=== PATIENT | male | born 1945 | race Caucasian/White ===

== ENCOUNTER 2019-10-30 19:00 | Emergency (ER) | payer MEDICARE, OTHER ==
[~2019-10-30] VITALS: Ht 170.2 cm; Wt 63.4 kg
[2019-10-30 19:37] LABS: BASOPHILS % (AUTO) 0.2 % (0-1); EOSINOPHILS % (AUTO) 0.3 % (0-6); HEMATOCRIT 39.7 % (42.0-52.0); HEMOGLOBIN 13.4 g/dl (14.0-17.9); LYMPHOCYTES # (AUTO) 0.3 X10'3 (1.1-4.8); LYMPHOCYTES % (AUTO) 1.9 % (21-51); MEAN CORPUSCULAR HGB CONC 33.8 g/dL (33.0-36.5); MEAN CORPUSCULAR VOLUME 91.8 FL (78-98); MEAN PLATELET VOLUME 7.2 FL (7.4-10.4); MONOCYTES # (AUTO) 0.8 X10'3 (0-0.9); MONOCYTES % (AUTO) 5.2 % (2-12); NEUTROPHILS % (AUTO) 92.4 % (42-75); PLATELET COUNT 204 X10'3 (140-440); RED BLOOD COUNT 4.33 X10'6 (4.70-6.10); WHITE BLOOD COUNT 16.2 X10'3 (4.5-11.0)
[2019-10-30 19:51] LABS: ANION GAP 7 (8-16); BLOOD UREA NITROGEN 25 MG/DL (7-18); BUN/CREATININE RATIO 13.4 (5.4-32.0); CALCIUM 9.1 MG/DL (8.5-10.1); CHLORIDE 101 MMOL/L (99-107); CREATININE 1.87 MG/DL (0.60-1.10); GLUCOSE 112 MG/DL (70-104); POTASSIUM 4.2 MMOL/L (3.5-5.1); SODIUM 136 MMOL/L (135-145); TOTAL CARBON DIOXIDE 27.7 MMOL/L (24-32); eGFR 35 ML/MIN
[2019-10-30 19:52] LABS: ALANINE AMINOTRANSFERASE 30 U/L (12-78); ALBUMIN 3.7 G/DL (3.4-5.0); ALBUMIN/GLOBULIN RATIO 1.1 (1.1-1.5); ALKALINE PHOSPHATASE 63 IU/L (46-116); ASPARTATE AMINO TRANSFERASE 30 U/L (10-37); LIPASE 145 U/L (73-393); TOTAL PROTEIN 7.2 G/DL (6.4-8.2)
[2019-10-30 21:14] LABS: CLARITY,URINE CLEAR (Clear); COLOR,URINE YELLOW (Yellow); GLUCOSE, URINE NEGATIVE (Neg); KETONES,URINE NEGATIVE (Neg); LEUKOCYTE ESTERASE ,URINE TRACE (Neg); NITRITES, URINE POSITIVE (Neg); OCCULT BLOOD,URINE NEGATIVE (Neg); PH,URINE 5.5 (4.8-8.0); PROTEIN,URINE NEGATIVE (Neg); UA COLLECTION TYPE NON-SPECIFIED; UROBILINOGEN,URINE 0.2 E.U/dL (0.2-1.0)
--- NOTE | 2019-10-30 21:14 | NUR ---
PT DAUGHTER KALPANA [phone] IS OPUTSIDE AWAITING PT DISCHARGE FOR TRANSPORTATION
[2019-10-30] MEDS ORDERED: CefTRIAXone 2gm/D5W 50ml 50 ML IV ONE (21:20)
[2019-10-30 21:22] LABS: SQUAMOUS EPITHELIAL CELL,UR NONE SEEN /LPF (FEW)
[2019-10-30 21:24] LABS: BACTERIA,URINE 1+ /HPF (Neg); RBC,URINE 0-2 /HPF (0-2); WBC,URINE 0-4 /HPF (0-4)
[2019-10-30 21:24] LABS: MAGNESIUM 1.8 MG/DL (1.5-2.4)
[2019-10-30 21:25] LABS: WBC CLUMPS,URINE FEW /HPF (NEGATIVE)
[2019-10-30 21:28] LABS: PARTIAL THROMBOPLASTIN TIME 29 SECONDS (22-32)
[2019-10-30] MEDS ORDERED: CIPR250T4 PO (22:00)
[2019-10-30] MEDS ORDERED: ciprofloxacin 250mg tablet PO ONE (22:00)
--- NOTE | 2019-10-30 22:32 | NUR ---
PHONE PT DAUGHTER UPDATED POC SHE WILL BE AWAITING HIS DISCHARGE
[2019-10-30 23:10] VITALS: BP 93/57
== END 2019-10-30 23:12 | disposition home or self-care (01) ==
LOC: ER 19:01
DX: N39.0 Urinary tract infection, site not specified (principal); R53.1 Weakness; R42 Dizziness and giddiness; R68.83 Chills (without fever); Z79.899 Other long term (current) drug therapy
CPT/HCPCS: 36415; 80053; 81001; 83690; 83735; 84484; 85025; 85610; 85730; 87077; 87088; 87186; 93005; 96365; 99284; J0696

== ENCOUNTER 2020-01-02 16:35 | Emergency (ER) | payer MEDICARE, OTHER ==
[~2020-01-02] VITALS: Ht 170.2 cm; Wt 70.5 kg
[2020-01-02 16:45] VITALS: BP 103/62
[2020-01-02 17:09] LABS: CLARITY,URINE CLOUDY (Clear); COLOR,URINE AMBER (Yellow); GLUCOSE, URINE NEGATIVE (Neg); KETONES,URINE TRACE mg/dl (Neg); LEUKOCYTE ESTERASE ,URINE TRACE (Neg); NITRITES, URINE NEGATIVE (Neg); OCCULT BLOOD,URINE NEGATIVE (Neg); PROTEIN,URINE 30 mg/dl (Neg)
[2020-01-02 17:11] LABS: UA COLLECTION TYPE URINAL
[2020-01-02 17:14] LABS: HYALINE CASTS >30 /LPF (NEGATIVE); SQUAMOUS EPITHELIAL CELL,UR MODERATE /LPF (FEW)
[2020-01-02 17:18] LABS: BACTERIA,URINE 2+ /HPF (Neg); RBC,URINE 0-2 /HPF (0-2)
[2020-01-02 17:19] LABS: WBC CLUMPS,URINE FEW /HPF (NEGATIVE)
[2020-01-02 17:20] LABS: TRANSITIONAL EPI CELLS,URINE FEW /HPF
[2020-01-02] MEDS ORDERED: CEFD300C3 PO (17:29)
== END 2020-01-02 17:55 | disposition home or self-care (01) ==
LOC: ER 16:36
DX: N39.0 Urinary tract infection, site not specified (principal); I10 Essential (primary) hypertension; Z79.2 Long term (current) use of antibiotics
CPT/HCPCS: 81001; 87088; 99283

== ENCOUNTER 2024-01-30 12:50 | Emergency (ER) | payer MEDICARE, OTHER ==
[~2024-01-30] VITALS: Ht 172.7 cm; Wt 65.9 kg
[2024-01-30 13:45] LABS: BASOPHILS # (AUTO) 0.1 X10'3 (0-0.2); EOSINOPHILS # (AUTO) 0.3 X10'3 (0-0.9); EOSINOPHILS % (AUTO) 3.7 % (0-6); HEMATOCRIT 42.9 % (42.0-52.0); HEMOGLOBIN 14.3 g/dl (14.0-17.9); LYMPHOCYTES # (AUTO) 1.1 X10'3 (1.1-4.8); LYMPHOCYTES % (AUTO) 15.8 % (21-51); MEAN CORPUSCULAR HGB CONC 33.3 g/dL (33.0-36.5); MEAN PLATELET VOLUME 7.3 FL (7.4-10.4); MONOCYTES # (AUTO) 0.8 X10'3 (0-0.9); MONOCYTES % (AUTO) 11.6 % (2-12); NEUTROPHILS # (AUTO) 4.9 X10'3 (1.8-7.7); NEUTROPHILS % (AUTO) 67.9 % (42-75); PLATELET COUNT 258 X10'3 (140-440); RED BLOOD COUNT 4.62 X10'6 (4.70-6.10); RED CELL DISTRIBUTION WIDTH 14.2 % (11.5-14.5); WHITE BLOOD COUNT 7.2 X10'3 (4.5-11.0)
[2024-01-30 14:00] LABS: ALANINE AMINOTRANSFERASE 30 U/L (12-78); ALBUMIN 4.1 G/DL (3.4-5.0); ALBUMIN/GLOBULIN RATIO 1.2 (1.1-1.5); ALKALINE PHOSPHATASE 68 IU/L (46-116); ANION GAP 6 (8-16); ASPARTATE AMINO TRANSFERASE 27 U/L (10-37); BILIRUBIN,TOTAL 0.6 MG/DL (0.1-1.0); BLOOD UREA NITROGEN 32 MG/DL (7-18); BUN/CREATININE RATIO 15.9 (10.0-20.0); CALCIUM 9.5 MG/DL (8.5-10.1); CHLORIDE 106 MMOL/L (99-107); CREATININE 2.01 MG/DL (0.60-1.10); GLUCOSE 115 MG/DL (70-104); POTASSIUM 4.4 MMOL/L (3.5-5.1); SODIUM 142 MMOL/L (135-145); TOTAL PROTEIN 7.6 G/DL (6.4-8.2); eCRCL 27 ML/MIN; eGFR 32 ML/MIN
[2024-01-30 14:25] VITALS: BP 153/79; PULSE 53; RESP 16; TEMP 98.3; O2SAT 98
== END 2024-01-30 14:39 | disposition home or self-care (01) ==
LOC: ER 12:52
DX: K92.2 Gastrointestinal hemorrhage, unspecified (principal); I10 Essential (primary) hypertension
CPT/HCPCS: 36415; 80053; 85025; 99283

== ENCOUNTER 2024-02-29 06:31 | Inpatient (IN) | payer MEDICARE, OTHER ==
[~2024-02-29] VITALS: Ht 172.7 cm; Wt 53.0 kg
[2024-02-29] VITALS (11 sets, daily range): BP systolic 136–146; BP diastolic 79–84; PULSE 54–88; RESP 18–28; TEMP 97.6; O2SAT 90–97
[2024-02-29 07:27] LABS: BASOPHILS % (AUTO) 0.2 % (0-1); EOSINOPHILS % (AUTO) 0 % (0-6); HEMATOCRIT 48.3 % (42.0-52.0); LYMPHOCYTES # (AUTO) 0.3 X10'3 (1.1-4.8); LYMPHOCYTES % (AUTO) 5.2 % (21-51); MEAN CORPUSCULAR HEMOGLOBIN 30.7 PG (27.0-31.0); MEAN CORPUSCULAR VOLUME 92.8 FL (78-98); MEAN PLATELET VOLUME 7.5 FL (7.4-10.4); MONOCYTES # (AUTO) 0.6 X10'3 (0-0.9); MONOCYTES % (AUTO) 10.8 % (2-12); NEUTROPHILS # (AUTO) 4.3 X10'3 (1.8-7.7); NEUTROPHILS % (AUTO) 83.8 % (42-75); PLATELET COUNT 215 X10'3 (140-440); RED BLOOD COUNT 5.21 X10'6 (4.70-6.10); RED CELL DISTRIBUTION WIDTH 14.7 % (11.5-14.5); WHITE BLOOD COUNT 5.2 X10'3 (4.5-11.0)
[2024-02-29 07:34] LABS: BILIRUBIN,URINE NEGATIVE (Neg); CLARITY,URINE CLEAR (Clear); COLOR,URINE YELLOW (Yellow); GLUCOSE, URINE NEGATIVE (Neg); KETONES,URINE NEGATIVE (Neg); LEUKOCYTE ESTERASE ,URINE NEGATIVE (Neg); NITRITES, URINE NEGATIVE (Neg); OCCULT BLOOD,URINE SMALL (Neg); PROTEIN,URINE 100 mg/dl (Neg); UROBILINOGEN,URINE 0.2 E.U/dL (0.2-1.0)
[2024-02-29 07:37] LABS: UA COLLECTION TYPE CLN CATCH MIDSTREAM
[2024-02-29 07:39] LABS: WBC,URINE 0-4 /HPF (0-4)
[2024-02-29 07:40] LABS: BACTERIA,URINE FEW /HPF (Neg); MUCUS STRANDS FEW /LPF (Neg); RBC,URINE 0-2 /HPF (0-2); SQUAMOUS EPITHELIAL CELL,UR FEW /LPF (FEW)
[2024-02-29 07:58] LABS: ANION GAP 13 (8-16); BLOOD UREA NITROGEN 48 MG/DL (7-18); BUN/CREATININE RATIO 22.6 (10.0-20.0); CALCIUM 9.8 MG/DL (8.5-10.1); CHLORIDE 104 MMOL/L (99-107); CREATININE 2.12 MG/DL (0.60-1.10); GLUCOSE 122 MG/DL (70-104); MAGNESIUM 3.2 MG/DL (1.5-2.4); POTASSIUM 3.5 MMOL/L (3.5-5.1); PRO BRAIN NATRIURETIC PEPTIDE 1055 PG/ML (0-450); SODIUM 142 MMOL/L (135-145); TOTAL CARBON DIOXIDE 24.7 MMOL/L (24-32); eCRCL 21 ML/MIN; eGFR 30 ML/MIN
[2024-02-29] MEDS: albuterol 2.5 MG/3 ML nebule NEB ONE (11:24)
[2024-02-29] MEDS: CefTRIAXone 2gm/D5W 50ml BAG 50 ML IV ONE (11:25)
[2024-02-29] MEDS: methylPREDNISolone sod succ 125mg/2ml vial IV ONE (11:25)
[2024-02-29] MEDS: azithromycin 250mg tablet PO ONE (12:24)
[2024-02-29] MEDS: normal saline 1000ml 1,000 ML IV ONE (12:29)
[2024-02-29] MEDS: normal saline 500ml IV soln 500 ML IV SCH (12:47)
[2024-02-29] MEDS ORDERED: magnesium sulf-water 4G/100mL 100 ML IV PRN (12:55)
[2024-02-29] MEDS ORDERED: albuterol 2.5 MG/3 ML nebule NEB PRN (12:55)
[2024-02-29] MEDS ORDERED: acetaminophen 325mg tablet PO PRN (12:55)
[2024-02-29] MEDS ORDERED: ondansetron/PF 4mg/2ml inj IV PRN (12:55)
[2024-02-29] MEDS ORDERED: magnesium Cl slow-release 64mg tablet PO PRN (12:55)
[2024-02-29] MEDS ORDERED: potassium Cl 20 mEq SR tablet PO PRN (12:55)
[2024-02-29] MEDS ORDERED: mag hydrox/Alum hydrox/simeth 30ml oral suspension PO PRN (12:55)
[2024-02-29] MEDS ORDERED: magnesium sulf-water 2g/50mL 50 ML IV PRN (12:55)
[2024-02-29] MEDS: normal saline 1000ml 1,000 ML IV SCH (12:55)
[2024-02-29] MEDS ORDERED: potassium Cl 40MEQ/1/2NS 520ml 520 ML IV PRN (12:55)
[2024-02-29] MEDS ORDERED: magnesium hydroxide 30ml (MOM) UD suspension PO PRN (12:55)
[2024-02-29] MEDS: methylPREDNISolone sod succ/PF 40mg inj. IV SCH (14:05)
[2024-02-29] MEDS: oseltamivir phos 75mg capsule PO SCH (14:05)
[2024-02-29 14:13] LABS: BILIRUBIN,URINE NEGATIVE (Neg); CLARITY,URINE CLEAR (Clear); COLOR,URINE YELLOW (Yellow); GLUCOSE, URINE NEGATIVE (Neg); KETONES,URINE NEGATIVE (Neg); LEUKOCYTE ESTERASE ,URINE NEGATIVE (Neg); NITRITES, URINE NEGATIVE (Neg); OCCULT BLOOD,URINE SMALL (Neg); PROTEIN,URINE 100 mg/dl (Neg); UROBILINOGEN,URINE 0.2 E.U/dL (0.2-1.0)
[2024-02-29 14:17] LABS: UA COLLECTION TYPE VOIDED
[2024-02-29 14:20] LABS: WBC,URINE 0-4 /HPF (0-4)
[2024-02-29 14:21] LABS: BACTERIA,URINE 1+ /HPF (Neg); MUCUS STRANDS FEW /LPF (Neg); SQUAMOUS EPITHELIAL CELL,UR FEW /LPF (FEW)
[2024-02-29] MEDS: azithromycin/NS 500mg/250ml 250 ML IV SCH (15:08)
[2024-02-29 15:21] LABS: APTT 33 SECONDS (22-32); INR 1.1 INR; PROTHROMBIN TIME 11.5 SECONDS (9.0-12.0)
[2024-02-29 15:37] LABS: HEMOGLOBIN A1C 4.9 % (4.5-6.2)
[2024-02-29 17:07] LABS: MAGNESIUM 2.5 MG/DL (1.5-2.4); PHOSPHORUS 3.2 MG/DL (2.3-4.5)
[2024-02-29] MEDS: K and/or MAG REPLACEMENT MC SCH (20:00)
[2024-02-29] MEDS: docusate sod 100mg capsule PO SCH (20:55)
[2024-02-29] MEDS: heparin, porcine 5000 units/ml vial SQ SCH (20:55)
[2024-03-01] VITALS (12 sets, daily range): BP systolic 148–167; BP diastolic 75–87; PULSE 55–78; RESP 18–25; TEMP 96.8–98.2; O2SAT 93–99
[2024-03-01 06:54] LABS: BASOPHILS % (AUTO) 0.1 % (0-1); EOSINOPHILS % (AUTO) 0 % (0-6); HEMATOCRIT 42.4 % (42.0-52.0); HEMOGLOBIN 14.2 g/dl (14.0-17.9); LYMPHOCYTES # (AUTO) 0.4 X10'3 (1.1-4.8); LYMPHOCYTES % (AUTO) 5.4 % (21-51); MEAN CORPUSCULAR HEMOGLOBIN 30.9 PG (27.0-31.0); MEAN CORPUSCULAR HGB CONC 33.5 g/dL (33.0-36.5); MEAN CORPUSCULAR VOLUME 92.3 FL (78-98); MEAN PLATELET VOLUME 7.5 FL (7.4-10.4); MONOCYTES # (AUTO) 0.8 X10'3 (0-0.9); MONOCYTES % (AUTO) 11.3 % (2-12); NEUTROPHILS # (AUTO) 6.2 X10'3 (1.8-7.7); NEUTROPHILS % (AUTO) 83.2 % (42-75); PLATELET COUNT 195 X10'3 (140-440); RED CELL DISTRIBUTION WIDTH 14.6 % (11.5-14.5); WHITE BLOOD COUNT 7.4 X10'3 (4.5-11.0)
[2024-03-01 07:38] LABS: ALANINE AMINOTRANSFERASE 68 U/L (12-78); ALBUMIN 2.2 G/DL (3.4-5.0); ALBUMIN/GLOBULIN RATIO 0.6 (1.1-1.5); ALKALINE PHOSPHATASE 56 IU/L (46-116); ANION GAP 12 (8-16); ASPARTATE AMINO TRANSFERASE 102 U/L (10-37); BILIRUBIN,TOTAL 0.7 MG/DL (0.1-1.0); BLOOD UREA NITROGEN 44 MG/DL (7-18); BUN/CREATININE RATIO 26.7 (10.0-20.0); CALCIUM 8.8 MG/DL (8.5-10.1); CHLORIDE 109 MMOL/L (99-107); CHOL/HDL RATIO 2.1 (0.00-4.99); CHOLESTEROL 84 MG/DL (0-200); CREATININE 1.65 MG/DL (0.60-1.10); GLUCOSE 174 MG/DL (70-104); HDL CHOLESTEROL 40 MG/DL (35-60); LDL CHOLESTEROL 38 MG/DL (50-100); POTASSIUM 3.3 MMOL/L (3.5-5.1); SODIUM 143 MMOL/L (135-145); TOTAL CARBON DIOXIDE 22.1 MMOL/L (24-32); TOTAL PROTEIN 6.1 G/DL (6.4-8.2); TRIGLYCERIDES 81 MG/DL (20-135); eCRCL 27 ML/MIN; eGFR 40 ML/MIN
[2024-03-01] MEDS: CefTRIAXone/D5W-Rocephin 1gm 50 ML IV SCH (08:43)
[2024-03-01] MEDS: lactobacillus rhamnosus 10,000 MMU CELLS/CAPSULE PO SCH (08:44)
[2024-03-01] MEDS: pantoprazole 40 MG vial IV SCH (08:44)
[2024-03-01] MEDS ORDERED: ipratropium/albuterol 3ml nebule NEB PRN (12:50)
[2024-03-01] MEDS: potassium Cl 20 mEq SR tablet PO PRN (13:36)
[2024-03-01] MEDS: ipratropium/albuterol 3ml nebule NEB SCH (15:35)
[2024-03-02] VITALS (19 sets, daily range): BP systolic 123–165; BP diastolic 80–92; PULSE 54–96; RESP 12–26; TEMP 97.4–97.9; O2SAT 89–97
[2024-03-02 06:04] LABS: BASOPHILS % (AUTO) 0 % (0-1); EOSINOPHILS % (AUTO) 0 % (0-6); HEMATOCRIT 44.3 % (42.0-52.0); LYMPHOCYTES # (AUTO) 0.3 X10'3 (1.1-4.8); LYMPHOCYTES % (AUTO) 2.5 % (21-51); MEAN CORPUSCULAR HGB CONC 33.8 g/dL (33.0-36.5); MEAN CORPUSCULAR VOLUME 91.8 FL (78-98); MEAN PLATELET VOLUME 7.4 FL (7.4-10.4); MONOCYTES # (AUTO) 0.9 X10'3 (0-0.9); MONOCYTES % (AUTO) 8.5 % (2-12); NEUTROPHILS # (AUTO) 9.5 X10'3 (1.8-7.7); PLATELET COUNT 216 X10'3 (140-440); RED BLOOD COUNT 4.82 X10'6 (4.70-6.10); RED CELL DISTRIBUTION WIDTH 14.4 % (11.5-14.5); WHITE BLOOD COUNT 10.7 X10'3 (4.5-11.0)
[2024-03-02 06:14] LABS: ALANINE AMINOTRANSFERASE 174 U/L (12-78); ALBUMIN 2.2 G/DL (3.4-5.0); ALBUMIN/GLOBULIN RATIO 0.5 (1.1-1.5); ALKALINE PHOSPHATASE 72 IU/L (46-116); ANION GAP 11 (8-16); ASPARTATE AMINO TRANSFERASE 220 U/L (10-37); BILIRUBIN,TOTAL 0.6 MG/DL (0.1-1.0); BLOOD UREA NITROGEN 47 MG/DL (7-18); BUN/CREATININE RATIO 31.8 (10.0-20.0); CALCIUM 8.6 MG/DL (8.5-10.1); CHLORIDE 106 MMOL/L (99-107); CREATININE 1.48 MG/DL (0.60-1.10); GLUCOSE 144 MG/DL (70-104); POTASSIUM 3.6 MMOL/L (3.5-5.1); SODIUM 138 MMOL/L (135-145); TOTAL CARBON DIOXIDE 20.7 MMOL/L (24-32); TOTAL PROTEIN 6.4 G/DL (6.4-8.2); eCRCL 30 ML/MIN; eGFR 46 ML/MIN
[2024-03-02] MEDS: aspirin 81mg, enteric-coated 1 TAB TABLET.DR PO SCH (09:47)
[2024-03-02] MEDS: atorvastatin 20mg tablet PO SCH (09:47)
[2024-03-02] MEDS: lisinopril 5mg tablet PO SCH (09:49)
[2024-03-02] MEDS: lactose-reduced food (Ensure Enlive) - 237ml bottle PO SCH (13:08)
[2024-03-03] VITALS (17 sets, daily range): BP systolic 107–178; BP diastolic 75–89; PULSE 51–66; RESP 18–22; TEMP 97.6–98.6; O2SAT 93–98
[2024-03-03 04:08] LABS: TOTAL PROTEIN,URINE RANDOM 50.4 MG/DL
[2024-03-03 04:13] LABS: OSMOLALITY UA 361.5 MOSM/K (50-1400)
[2024-03-03 05:22] LABS: BASOPHILS % (AUTO) 0.1 % (0-1); EOSINOPHILS % (AUTO) 0 % (0-6); HEMATOCRIT 42.5 % (42.0-52.0); HEMOGLOBIN 14.4 g/dl (14.0-17.9); LYMPHOCYTES # (AUTO) 0.1 X10'3 (1.1-4.8); LYMPHOCYTES % (AUTO) 1.1 % (21-51); MEAN CORPUSCULAR HEMOGLOBIN 30.8 PG (27.0-31.0); MEAN CORPUSCULAR HGB CONC 33.8 g/dL (33.0-36.5); MEAN CORPUSCULAR VOLUME 91.1 FL (78-98); MEAN PLATELET VOLUME 7.3 FL (7.4-10.4); MONOCYTES # (AUTO) 0.7 X10'3 (0-0.9); MONOCYTES % (AUTO) 6.1 % (2-12); NEUTROPHILS # (AUTO) 11.3 X10'3 (1.8-7.7); NEUTROPHILS % (AUTO) 92.7 % (42-75); PLATELET COUNT 250 X10'3 (140-440); RED BLOOD COUNT 4.66 X10'6 (4.70-6.10); RED CELL DISTRIBUTION WIDTH 14.3 % (11.5-14.5); WHITE BLOOD COUNT 12.2 X10'3 (4.5-11.0)
[2024-03-03 05:53] LABS: ALANINE AMINOTRANSFERASE 164 U/L (12-78); ALBUMIN 2.2 G/DL (3.4-5.0); ALBUMIN/GLOBULIN RATIO 0.6 (1.1-1.5); ALKALINE PHOSPHATASE 76 IU/L (46-116); ANION GAP 12 (8-16); ASPARTATE AMINO TRANSFERASE 153 U/L (10-37); BILIRUBIN,TOTAL 0.6 MG/DL (0.1-1.0); BLOOD UREA NITROGEN 43 MG/DL (7-18); BUN/CREATININE RATIO 34.1 (10.0-20.0); CALCIUM 8.8 MG/DL (8.5-10.1); CHLORIDE 106 MMOL/L (99-107); CREATININE 1.26 MG/DL (0.60-1.10); GLUCOSE 136 MG/DL (70-104); POTASSIUM 3.1 MMOL/L (3.5-5.1); PRO BRAIN NATRIURETIC PEPTIDE 2357 PG/ML (0-450); SODIUM 142 MMOL/L (135-145); TOTAL CARBON DIOXIDE 24.1 MMOL/L (24-32); eCRCL 35 ML/MIN; eGFR 55 ML/MIN
[2024-03-03] MEDS: pantoprazole 40mg Tablet.DR PO SCH (09:03)
[2024-03-03] MEDS: azithromycin 250mg tablet PO SCH (09:03)
[2024-03-04] VITALS (15 sets, daily range): BP systolic 147–173; BP diastolic 84–95; PULSE 55–78; RESP 16–20; TEMP 97.6–98.3; O2SAT 6–100
[2024-03-04 06:16] LABS: BASOPHILS % (AUTO) 0.3 % (0-1); EOSINOPHILS % (AUTO) 0 % (0-6); HEMATOCRIT 46.8 % (42.0-52.0); HEMOGLOBIN 15.8 g/dl (14.0-17.9); LYMPHOCYTES # (AUTO) 0.3 X10'3 (1.1-4.8); LYMPHOCYTES % (AUTO) 2.1 % (21-51); MEAN CORPUSCULAR HEMOGLOBIN 30.7 PG (27.0-31.0); MEAN CORPUSCULAR HGB CONC 33.7 g/dL (33.0-36.5); MEAN CORPUSCULAR VOLUME 91.1 FL (78-98); MEAN PLATELET VOLUME 7.4 FL (7.4-10.4); MONOCYTES # (AUTO) 0.6 X10'3 (0-0.9); MONOCYTES % (AUTO) 4.5 % (2-12); NEUTROPHILS # (AUTO) 12.2 X10'3 (1.8-7.7); NEUTROPHILS % (AUTO) 93.1 % (42-75); PLATELET COUNT 302 X10'3 (140-440); RED BLOOD COUNT 5.14 X10'6 (4.70-6.10); RED CELL DISTRIBUTION WIDTH 14.4 % (11.5-14.5); WHITE BLOOD COUNT 13.2 X10'3 (4.5-11.0)
[2024-03-04 06:31] LABS: ALANINE AMINOTRANSFERASE 252 U/L (12-78); ALBUMIN 2.7 G/DL (3.4-5.0); ALBUMIN/GLOBULIN RATIO 0.6 (1.1-1.5); ALKALINE PHOSPHATASE 100 IU/L (46-116); ANION GAP 7 (8-16); ASPARTATE AMINO TRANSFERASE 180 U/L (10-37); BILIRUBIN,TOTAL 0.7 MG/DL (0.1-1.0); BLOOD UREA NITROGEN 42 MG/DL (7-18); BUN/CREATININE RATIO 31.3 (10.0-20.0); CALCIUM 9.5 MG/DL (8.5-10.1); CHLORIDE 104 MMOL/L (99-107); CREATININE 1.34 MG/DL (0.60-1.10); GLUCOSE 145 MG/DL (70-104); POTASSIUM 3.9 MMOL/L (3.5-5.1); SODIUM 141 MMOL/L (135-145); TOTAL PROTEIN 6.9 G/DL (6.4-8.2); eCRCL 33 ML/MIN; eGFR 51 ML/MIN
[2024-03-04] MEDS ORDERED: ROSU20TA98 PO (16:11)
[2024-03-04] MEDS: methylPREDNISolone sod succ/PF 40mg inj. IV SCH (21:26)
[2024-03-04] MEDS: QUETIAPINE 50 MG TAB.SR.24H PO SCH (21:27)
[2024-03-05] VITALS (13 sets, daily range): BP systolic 150–156; BP diastolic 79–88; PULSE 51–81; RESP 16–20; TEMP 96.9–98; O2SAT 88–98
[2024-03-05 05:48] LABS: BASOPHILS % (AUTO) 0.2 % (0-1); EOSINOPHILS % (AUTO) 0 % (0-6); HEMOGLOBIN 14.6 g/dl (14.0-17.9); LYMPHOCYTES # (AUTO) 0.4 X10'3 (1.1-4.8); MEAN CORPUSCULAR HEMOGLOBIN 30.1 PG (27.0-31.0); MEAN CORPUSCULAR HGB CONC 33.1 g/dL (33.0-36.5); MEAN PLATELET VOLUME 7.5 FL (7.4-10.4); MONOCYTES # (AUTO) 0.8 X10'3 (0-0.9); MONOCYTES % (AUTO) 5.9 % (2-12); NEUTROPHILS # (AUTO) 12.3 X10'3 (1.8-7.7); NEUTROPHILS % (AUTO) 90.9 % (42-75); PLATELET COUNT 280 X10'3 (140-440); RED BLOOD COUNT 4.83 X10'6 (4.70-6.10); RED CELL DISTRIBUTION WIDTH 14.1 % (11.5-14.5); WHITE BLOOD COUNT 13.5 X10'3 (4.5-11.0)
[2024-03-05 06:04] LABS: ALANINE AMINOTRANSFERASE 281 U/L (12-78); ALBUMIN 2.5 G/DL (3.4-5.0); ALBUMIN/GLOBULIN RATIO 0.7 (1.1-1.5); ALKALINE PHOSPHATASE 97 IU/L (46-116); ANION GAP 6 (8-16); ASPARTATE AMINO TRANSFERASE 152 U/L (10-37); BILIRUBIN,TOTAL 0.7 MG/DL (0.1-1.0); BLOOD UREA NITROGEN 42 MG/DL (7-18); BUN/CREATININE RATIO 33.3 (10.0-20.0); CALCIUM 9.2 MG/DL (8.5-10.1); CHLORIDE 101 MMOL/L (99-107); CREATININE 1.26 MG/DL (0.60-1.10); GLUCOSE 140 MG/DL (70-104); POTASSIUM 4.4 MMOL/L (3.5-5.1); SODIUM 139 MMOL/L (135-145); TOTAL CARBON DIOXIDE 31.6 MMOL/L (24-32); TOTAL PROTEIN 6.2 G/DL (6.4-8.2); eCRCL 35 ML/MIN; eGFR 55 ML/MIN
[2024-03-05] MEDS: lisinopril 10 MG tablet PO SCH (08:41)
[2024-03-06] VITALS (13 sets, daily range): BP systolic 112–164; BP diastolic 72–94; PULSE 71–98; RESP 13–20; TEMP 97.5–99.3; O2SAT 92–97
[2024-03-06 08:50] LABS: BASOPHILS % (AUTO) 0.1 % (0-1); EOSINOPHILS % (AUTO) 0 % (0-6); HEMATOCRIT 45.9 % (42.0-52.0); HEMOGLOBIN 15.2 g/dl (14.0-17.9); LYMPHOCYTES # (AUTO) 0.5 X10'3 (1.1-4.8); LYMPHOCYTES % (AUTO) 4.7 % (21-51); MEAN CORPUSCULAR HEMOGLOBIN 30.5 PG (27.0-31.0); MEAN CORPUSCULAR VOLUME 92.3 FL (78-98); MEAN PLATELET VOLUME 7.2 FL (7.4-10.4); MONOCYTES % (AUTO) 8.7 % (2-12); NEUTROPHILS # (AUTO) 9.7 X10'3 (1.8-7.7); NEUTROPHILS % (AUTO) 86.5 % (42-75); PLATELET COUNT 329 X10'3 (140-440); RED BLOOD COUNT 4.98 X10'6 (4.70-6.10); RED CELL DISTRIBUTION WIDTH 14.3 % (11.5-14.5); WHITE BLOOD COUNT 11.2 X10'3 (4.5-11.0)
[2024-03-06 08:59] LABS: ALBUMIN 2.6 G/DL (3.4-5.0); ANION GAP 4 (8-16); BLOOD UREA NITROGEN 45 MG/DL (7-18); BUN/CREATININE RATIO 42.9 (10.0-20.0); CALCIUM 9.2 MG/DL (8.5-10.1); CHLORIDE 105 MMOL/L (99-107); CREATININE 1.05 MG/DL (0.60-1.10); GLUCOSE 107 MG/DL (70-104); POTASSIUM 4.6 MMOL/L (3.5-5.1); SODIUM 140 MMOL/L (135-145); TOTAL CARBON DIOXIDE 31.1 MMOL/L (24-32); eCRCL 42 ML/MIN; eGFR 68 ML/MIN
[2024-03-07] VITALS (8 sets, daily range): BP systolic 124–135; BP diastolic 75–86; PULSE 72–81; RESP 14–20; TEMP 97.5–98; O2SAT 92–96
[2024-03-07 07:29] LABS: BASOPHILS # (AUTO) 0.1 X10'3 (0-0.2); BASOPHILS % (AUTO) 0.4 % (0-1); EOSINOPHILS % (AUTO) 0.1 % (0-6); HEMATOCRIT 45.5 % (42.0-52.0); HEMOGLOBIN 15.2 g/dl (14.0-17.9); LYMPHOCYTES # (AUTO) 0.6 X10'3 (1.1-4.8); LYMPHOCYTES % (AUTO) 4.6 % (21-51); MEAN CORPUSCULAR HEMOGLOBIN 30.6 PG (27.0-31.0); MEAN CORPUSCULAR HGB CONC 33.4 g/dL (33.0-36.5); MEAN CORPUSCULAR VOLUME 91.6 FL (78-98); MEAN PLATELET VOLUME 7.6 FL (7.4-10.4); MONOCYTES # (AUTO) 1.2 X10'3 (0-0.9); NEUTROPHILS % (AUTO) 85.9 % (42-75); PLATELET COUNT 354 X10'3 (140-440); RED BLOOD COUNT 4.97 X10'6 (4.70-6.10); RED CELL DISTRIBUTION WIDTH 14.3 % (11.5-14.5); WHITE BLOOD COUNT 12.8 X10'3 (4.5-11.0)
[2024-03-07 08:04] LABS: ALBUMIN 2.6 G/DL (3.4-5.0); BLOOD UREA NITROGEN 52 MG/DL (7-18); BUN/CREATININE RATIO 39.4 (10.0-20.0); CALCIUM 9.1 MG/DL (8.5-10.1); CHLORIDE 103 MMOL/L (99-107); CREATININE 1.32 MG/DL (0.60-1.10); GLUCOSE 102 MG/DL (70-104); POTASSIUM 4.5 MMOL/L (3.5-5.1); SODIUM 140 MMOL/L (135-145); eCRCL 33 ML/MIN; eGFR 52 ML/MIN
[2024-03-07 08:36] LABS: ANION GAP 10 (8-16); TOTAL CARBON DIOXIDE 27.1 MMOL/L (24-32)
[2024-03-07] MEDS: lisinopril 10 MG tablet PO SCH (10:51)
== END 2024-03-07 16:35 | DRG 871 ==
LOC: ER 06:32 → ED HOLD 11:48 → PCU 3S 16:24 → SUR 3N 03-04 02:15
PROVIDERS: ADMIT Family Medicine; ATTEND Family Medicine
PROC: 5A0955A Assistance with Respiratory Ventilation, Greater than 96 Consecutive Hours, High Flow/Velocity Cannula (ICD-10-PCS; 2024-02-29)
PROC: CB121ZZ Planar Nuclear Medicine Imaging of Lungs and Bronchi using Technetium 99m (Tc-99m) (ICD-10-PCS; principal; 2024-03-03)
DX: A41.9 Sepsis, unspecified organism (principal); J10.00 Influenza due to other identified influenza virus with unspecified type of pneumonia; J18.9 Pneumonia, unspecified organism; J96.01 Acute respiratory failure with hypoxia; N17.0 Acute kidney failure with tubular necrosis; Z68.1 Body mass index [BMI] 19.9 or less, adult; E46 Unspecified protein-calorie malnutrition; E87.6 Hypokalemia; Z20.822 Contact with and (suspected) exposure to COVID-19; F03.B0 Unspecified dementia, moderate, without behavioral disturbance, psychotic disturbance, mood disturbance, and anxiety; I10 Essential (primary) hypertension; E78.5 Hyperlipidemia, unspecified; Z87.891 Personal history of nicotine dependence; Z85.46 Personal history of malignant neoplasm of prostate; Z95.5 Presence of coronary angioplasty implant and graft; Z90.79 Acquired absence of other genital organ(s)
CPT/HCPCS: 36415; 71045; 71046; 71275; 76700; 78582; 80048; 80053; 80061; 81001; 82570; 83036; 83605; 83735; 83880; 83930; 83935; 84100; 84133; 84145; 84156; 84300; 84484; 85025; 85610; 85730; 87040; 87081; 87207; 87502; 87503; 87811; 92508; 92616; 93005; 93306; 94640; 94760; 97110; 97161; 97530; 97535; 99291; A4349; A4615; A4620; A5200; A6212; A6213; A6223; A6446; A6449; A6590; A7015; A9539; A9540; G0378; J0456; J0696; J1644; J2470; J2919; J7030; J7040